=== PATIENT | female | born 1995 | race Caucasian/White ===

== ENCOUNTER 2023-05-06 18:54 | Emergency (ER) | payer SELFPAY ==
[~2023-05-06] VITALS: Ht 170.2 cm; Wt 66.2 kg
[2023-05-06] MEDS: LIDOCAINE HCL/PF 1% 30 ML VIAL TP ONE (21:00)
[2023-05-06] MEDS: HYDROCODONE/APAP 7.5/325MG 1 EACH TABLET PO ONE (21:00)
[2023-05-06] MEDS ORDERED: HYDROCODONE/APAP 5/325MG TABLET ONE (21:37)
[2023-05-06] MEDS ORDERED: LIDOCAINE HCL/MPF 1% 30 ML VIAL IJ ONE (21:37)
[2023-05-06] MEDS ORDERED: IBUPROFEN 600 MG TABLET ONE (21:37)
[2023-05-06] MEDS: IBUPROFEN 600 MG TABLET PO ONE (22:00)
[2023-05-06] MEDS: HYDROCODONE/APAP 5/325MG TABLET PO ONE (22:05)
[2023-05-06 22:08] LABS: PREGNANCY TEST URINE QUAL NEGATIVE (NEGATIVE)
[2023-05-06] MEDS ORDERED: IBUP-1955 PO (23:04)
[2023-05-06] MEDS ORDERED: ACET325C7 PO (23:04)
[2023-05-06] MEDS ORDERED: AMOX500C2 PO (23:12)
[2023-05-06 23:15] VITALS: BP 111/79; TEMP 98.2; O2SAT 97
== END 2023-05-06 23:15 | disposition home or self-care (01) ==
LOC: ER 19:00
DX: S01.511A Laceration without foreign body of lip, initial encounter (principal); S69.91XA Unspecified injury of right wrist, hand and finger(s), initial encounter; S59.911A Unspecified injury of right forearm, initial encounter; M79.661 Pain in right lower leg; M79.662 Pain in left lower leg; V43.52XA Car driver injured in collision with other type car in traffic accident, initial encounter; Y93.89 Activity, other specified; Y92.89 Other specified places as the place of occurrence of the external cause; Y99.8 Other external cause status
CPT/HCPCS: 12011; 29125; 73090; 73110; 73130; 73590; 84703; 99284; A6403; J3490